=== PATIENT | female | born 1945 | race Caucasian/White ===

== ENCOUNTER → 2023-06-24 08:58 | Outpatient (REF) | payer MEDICARE, BC, SELFPAY ==
[2023-06-24 09:33] LABS: % Basophils 0.5 % (0-2); % Immature Granulocytes 0.2 % (0-0.5); % Lymphocytes 30.4 % (20.5-51.1); % Monocytes 9.2 % (1.7-9.3); % Neutrophils 57.7 % (42.2-75.2); Absolute Eosinophils 0.1 10^3/uL (0-0.7); Absolute Lymphocytes 1.9 10^3/uL (1.2-3.4); Absolute Monocytes 0.6 10^3/uL (0.1-0.6); Absolute Neutrophils 3.5 10^3/uL (1.4-6.5); Hematocrit 34.2 % (37.0-47.0); Hemoglobin 10.9 g/dL (12.0-16.0); Mean Corp Hgb Conc. 31.9 g/dL (33.0-37.0); Mean Corpuscular Hgb 27.2 pg (27.0-31.0); Mean Corpuscular Volume 85.3 fL (81.0-99.0); Mean Platelet Volume 10.4 fL (7.4-10.4); Nucleated Red Blood Cells % 0 %; Platelet Count 261 10^3/uL (130-400); Red Blood Cell Count 4.01 10^6/uL (4.20-5.40); Red Cell Dist. Width 15.7 % (11.5-14.5); White Blood Cell Count 6.1 10^3/uL (4.8-10.8)
[2023-06-24 10:02] LABS: ALT (SGPT) 31 U/L (0-35); AST (SGOT) 41 U/L (14-36); Albumin 4.3 g/dl (3.5-5.0); Alkaline Phosphatase 351 U/L (38-126); Blood Urea Nitrogen 11 mg/dl (7-17); Carbon Dioxide 23 mmol/L (22-30); Chloride 103 mmol/L (98-107); Glucose 94 mg/dl (70-99); HDL Cholesterol 87 mg/dl; Iron 74 ug/dl (37-170); LDL Cholesterol, Calculated 88 mg/dl; Potassium 4.1 mmol/L (3.5-5.1); Sodium 137 mmol/L (135-145); Total Bilirubin 0.7 mg/dl (0.2-1.3); Total Cholesterol 194 mg/dl (50-199); Total Protein 8.4 g/dl (6.3-8.2); Triglyceride 98 mg/dl (10-149); Very Low Density Lipoprotein 19 mg/dl (0-30); eGFR > 60.00
[2023-06-24 10:11] LABS: Percent Saturation 18 % (20-50); Total Iron Binding Capacity 402 ug/dl (265-497)
[2023-06-24 10:28] LABS: TSH Reflex To Free T4 4.43 uIU/ml (0.47-4.68)
== END ==
LOC: REG 08:58
PROVIDERS: ATTENDING PHYSICIAN Internal Medicine Hematology & Oncology; FAMILY PHYSICIAN Family Medicine
DX: D50.9 Iron deficiency anemia, unspecified (principal); K75.4 Autoimmune hepatitis; K74.3 Primary biliary cirrhosis; Z13.1 Encounter for screening for diabetes mellitus; E78.00 Pure hypercholesterolemia, unspecified; E03.9 Hypothyroidism, unspecified
CPT/HCPCS: 36415; 80053; 80061; 82728; 83540; 83550; 84443; 85025

== ENCOUNTER → 2023-11-01 13:16 | Outpatient (REF) | payer MEDICARE, BC, SELFPAY ==
[2023-11-01 15:01] LABS: % Basophils 0.6 % (0-2); % Eosinophils 1.1 % (0-6); % Immature Granulocytes 0.2 % (0-0.5); % Lymphocytes 34.5 % (20.5-51.1); % Monocytes 8.5 % (1.7-9.3); % Neutrophils 55.1 % (42.2-75.2); Absolute Eosinophils 0.1 10^3/uL (0-0.7); Absolute Lymphocytes 1.8 10^3/uL (1.2-3.4); Absolute Monocytes 0.5 10^3/uL (0.1-0.6); Absolute Neutrophils 2.9 10^3/uL (1.4-6.5); Hematocrit 28.8 % (37.0-47.0); Hemoglobin 9.2 g/dL (12.0-16.0); Mean Corp Hgb Conc. 31.9 g/dL (33.0-37.0); Mean Corpuscular Hgb 25.3 pg (27.0-31.0); Mean Corpuscular Volume 79.3 fL (81.0-99.0); Mean Platelet Volume 11.4 fL (7.4-10.4); Nucleated Red Blood Cells % 0 %; Platelet Count 212 10^3/uL (130-400); Red Blood Cell Count 3.63 10^6/uL (4.20-5.40); Red Cell Dist. Width 16.8 % (11.5-14.5); White Blood Cell Count 5.3 10^3/uL (4.8-10.8)
[2023-11-01 15:15] LABS: INR 1.09
[2023-11-01 15:30] LABS: NT-proBNP 349 pg/ml
[2023-11-01 15:35] LABS: ALT (SGPT) 15 U/L (0-35); AST (SGOT) 30 U/L (14-36); Albumin 2.6 g/dl (3.5-5.0); Alkaline Phosphatase 212 U/L (38-126); Blood Urea Nitrogen 10 mg/dl (7-17); Calcium 9.4 mg/dl (8.4-10.2); Carbon Dioxide 23 mmol/L (22-30); Chloride 104 mmol/L (98-107); GGTP 174 U/L (12-43); Glucose 84 mg/dl (70-99); Potassium 4.2 mmol/L (3.5-5.1); Sodium 133 mmol/L (135-145); Total Bilirubin 0.5 mg/dl (0.2-1.3); Total Protein 7.5 g/dl (6.3-8.2); eGFR > 60.00
[2023-11-01 15:47] LABS: Vitamin D, 25-OH*** 48.8 ng/mL (30-80)
[2023-11-03 11:04] LABS: Iron 27 ug/dl (37-170)
[2023-11-03 11:13] LABS: Percent Saturation 6 % (20-50); Total Iron Binding Capacity 426 ug/dl (265-497)
== END ==
LOC: REG 13:16
PROVIDERS: Internal Medicine; ATTENDING PHYSICIAN Internal Medicine Rheumatology; FAMILY PHYSICIAN Family Medicine; REFERRING PHYSICIAN Internal Medicine Transplant Hepatology
DX: D64.9 Anemia, unspecified (principal); I27.20 Pulmonary hypertension, unspecified; K22.719 Barrett's esophagus with dysplasia, unspecified; M34.1 CR(E)ST syndrome; M81.0 Age-related osteoporosis without current pathological fracture; Z51.81 Encounter for therapeutic drug level monitoring; K74.3 Primary biliary cirrhosis; M35.9 Systemic involvement of connective tissue, unspecified; I27.21 Secondary pulmonary arterial hypertension
CPT/HCPCS: 36415; 80053; 82306; 82728; 82977; 83540; 83550; 83880; 84446; 84590; 85025; 85610

== ENCOUNTER → 2023-11-08 16:07 | Outpatient (REF) | payer MEDICARE, BC, SELFPAY ==
[2023-11-08 14:50] LABS: % Basophils 0.5 % (0-2); % Eosinophils 1.5 % (0-6); % Immature Granulocytes 0.3 % (0-0.5); % Lymphocytes 27.9 % (20.5-51.1); % Monocytes 7.6 % (1.7-9.3); % Neutrophils 62.2 % (42.2-75.2); Absolute Eosinophils 0.1 10^3/uL (0-0.7); Absolute Lymphocytes 1.7 10^3/uL (1.2-3.4); Absolute Monocytes 0.5 10^3/uL (0.1-0.6); Absolute Neutrophils 3.8 10^3/uL (1.4-6.5); Hematocrit 30.7 % (37.0-47.0); Hemoglobin 9.7 g/dL (12.0-16.0); Mean Corp Hgb Conc. 31.6 g/dL (33.0-37.0); Mean Corpuscular Hgb 25.4 pg (27.0-31.0); Mean Corpuscular Volume 80.4 fL (81.0-99.0); Mean Platelet Volume 11.1 fL (7.4-10.4); Nucleated Red Blood Cells % 0 %; Platelet Count 239 10^3/uL (130-400); Red Blood Cell Count 3.82 10^6/uL (4.20-5.40); Red Cell Dist. Width 16.9 % (11.5-14.5); White Blood Cell Count 6.2 10^3/uL (4.8-10.8)
[2023-11-08 15:03] LABS: Phosphorus 4.2 mg/dl (2.5-4.5)
[2023-11-08 17:22] LABS: Vitamin D, 25-OH*** 48.3 ng/mL (30-80)
== END ==
LOC: OIDL 16:07
PROVIDERS: ATTENDING PHYSICIAN Nurse Practitioner Family
DX: D50.9 Iron deficiency anemia, unspecified (principal); E55.9 Vitamin D deficiency, unspecified
CPT/HCPCS: 82306; 84100; 85025

== ENCOUNTER → 2023-12-06 08:38 | Outpatient (REF) | payer MEDICARE, BC, SELFPAY ==
[2023-12-06 10:08] LABS: % Basophils 0.4 % (0-2); % Eosinophils 2.2 % (0-6); % Immature Granulocytes 0.4 % (0-0.5); % Lymphocytes 37.9 % (20.5-51.1); % Monocytes 8.7 % (1.7-9.3); % Neutrophils 50.4 % (42.2-75.2); Absolute Eosinophils 0.1 10^3/uL (0-0.7); Absolute Lymphocytes 1.7 10^3/uL (1.2-3.4); Absolute Monocytes 0.4 10^3/uL (0.1-0.6); Absolute Neutrophils 2.2 10^3/uL (1.4-6.5); Hematocrit 35.8 % (37.0-47.0); Hemoglobin 11.2 g/dL (12.0-16.0); Mean Corp Hgb Conc. 31.3 g/dL (33.0-37.0); Mean Corpuscular Hgb 27.2 pg (27.0-31.0); Mean Corpuscular Volume 86.9 fL (81.0-99.0); Nucleated Red Blood Cells % 0 %; Platelet Count 184 10^3/uL (130-400); Red Blood Cell Count 4.12 10^6/uL (4.20-5.40); Red Cell Dist. Width 23.3 % (11.5-14.5); White Blood Cell Count 4.5 10^3/uL (4.8-10.8)
[2023-12-06 10:09] LABS: ALT (SGPT) 19 U/L (0-35); AST (SGOT) 38 U/L (14-36); Albumin 3.8 g/dl (3.5-5.0); Alkaline Phosphatase 233 U/L (38-126); Blood Urea Nitrogen 6 mg/dl (7-17); Calcium 8.8 mg/dl (8.4-10.2); Carbon Dioxide 23 mmol/L (22-30); Chloride 109 mmol/L (98-107); Glucose 88 mg/dl (70-99); HDL Cholesterol 90 mg/dl; LDL Cholesterol, Calculated 78 mg/dl; Potassium 4.7 mmol/L (3.5-5.1); Sodium 141 mmol/L (135-145); Total Bilirubin 0.6 mg/dl (0.2-1.3); Total Cholesterol 186 mg/dl (50-199); Total Protein 7.1 g/dl (6.3-8.2); Triglyceride 90 mg/dl (10-149); Very Low Density Lipoprotein 18 mg/dl (0-30); eGFR > 60.00
[2023-12-06 11:03] LABS: TSH Reflex To Free T4 4.29 uIU/ml (0.47-4.68)
[2023-12-06 12:17] LABS: Normal RBC Morphology No
[2023-12-06 12:18] LABS: Anisocytosis 1+; Microcytosis 1+
== END ==
LOC: REG 08:38
PROVIDERS: ATTENDING PHYSICIAN Family Medicine
DX: K75.4 Autoimmune hepatitis (principal); K74.3 Primary biliary cirrhosis; D50.9 Iron deficiency anemia, unspecified; R74.8 Abnormal levels of other serum enzymes; Z13.1 Encounter for screening for diabetes mellitus; E78.00 Pure hypercholesterolemia, unspecified; E03.9 Hypothyroidism, unspecified
CPT/HCPCS: 36415; 80053; 80061; 82728; 84443; 85025

== ENCOUNTER → 2023-12-28 12:46 | Outpatient (REF) | payer MEDICARE, BC, SELFPAY ==
[2023-12-28 13:37] LABS: % Basophils 0.2 % (0-2); % Eosinophils 1.7 % (0-6); % Immature Granulocytes 0.2 % (0-0.5); % Lymphocytes 36.3 % (20.5-51.1); % Monocytes 7.2 % (1.7-9.3); % Neutrophils 54.4 % (42.2-75.2); Absolute Eosinophils 0.1 10^3/uL (0-0.7); Absolute Lymphocytes 1.5 10^3/uL (1.2-3.4); Absolute Monocytes 0.3 10^3/uL (0.1-0.6); Absolute Neutrophils 2.3 10^3/uL (1.4-6.5); Hematocrit 37.3 % (37.0-47.0); Hemoglobin 11.9 g/dL (12.0-16.0); Mean Corp Hgb Conc. 31.9 g/dL (33.0-37.0); Mean Corpuscular Hgb 27.9 pg (27.0-31.0); Mean Corpuscular Volume 87.6 fL (81.0-99.0); Mean Platelet Volume 11.1 fL (7.4-10.4); Nucleated Red Blood Cells % 0 %; Platelet Count 171 10^3/uL (130-400); Red Blood Cell Count 4.26 10^6/uL (4.20-5.40); White Blood Cell Count 4.2 10^3/uL (4.8-10.8)
[2023-12-28 14:07] LABS: Iron 70 ug/dl (37-170)
[2023-12-28 14:17] LABS: Percent Saturation 22 % (20-50); Total Iron Binding Capacity 315 ug/dl (265-497)
[2023-12-28 14:45] LABS: Ferritin 55.8 ng/ml (11.1-264.0)
== END ==
LOC: REG 12:46
PROVIDERS: ATTENDING PHYSICIAN Nurse Practitioner Family; FAMILY PHYSICIAN Family Medicine
DX: D50.9 Iron deficiency anemia, unspecified (principal)
CPT/HCPCS: 36415; 82728; 83540; 83550; 85025

== ENCOUNTER → 2024-03-17 13:12 | Outpatient (REF) | payer MEDICARE, BC, SELFPAY ==
[2024-03-17 13:45] LABS: % Basophils 0.4 % (0-2); % Eosinophils 1.6 % (0-6); % Immature Granulocytes 0.2 % (0-0.5); % Lymphocytes 35.4 % (20.5-51.1); % Monocytes 7.5 % (1.7-9.3); % Neutrophils 54.9 % (42.2-75.2); Absolute Eosinophils 0.1 10^3/uL (0-0.7); Absolute Lymphocytes 1.8 10^3/uL (1.2-3.4); Absolute Monocytes 0.4 10^3/uL (0.1-0.6); Absolute Neutrophils 2.7 10^3/uL (1.4-6.5); Hematocrit 32.9 % (37.0-47.0); Hemoglobin 10.6 g/dL (12.0-16.0); Mean Corp Hgb Conc. 32.2 g/dL (33.0-37.0); Mean Corpuscular Hgb 27.7 pg (27.0-31.0); Mean Corpuscular Volume 85.9 fL (81.0-99.0); Mean Platelet Volume 11.5 fL (7.4-10.4); Nucleated Red Blood Cells % 0 %; Platelet Count 190 10^3/uL (130-400); Red Blood Cell Count 3.83 10^6/uL (4.20-5.40); Red Cell Dist. Width 15.7 % (11.5-14.5); White Blood Cell Count 4.9 10^3/uL (4.8-10.8)
[2024-03-17 14:41] LABS: Iron 84 ug/dl (37-170)
[2024-03-17 14:50] LABS: Percent Saturation 22 % (20-50); Total Iron Binding Capacity 378 ug/dl (265-497)
== END ==
LOC: REG 13:12
PROVIDERS: ATTENDING PHYSICIAN Internal Medicine Hematology & Oncology; FAMILY PHYSICIAN Family Medicine
DX: D50.9 Iron deficiency anemia, unspecified (principal)
CPT/HCPCS: 36415; 82728; 83540; 83550; 85025

== ENCOUNTER → 2024-04-06 14:15 | Outpatient (REF) | payer MEDICARE, BC, SELFPAY ==
[2024-04-06 14:24] LABS: % Basophils 0.7 % (0-2); % Eosinophils 1.2 % (0-6); % Immature Granulocytes 0.2 % (0-0.5); % Lymphocytes 36.2 % (20.5-51.1); % Monocytes 8.5 % (1.7-9.3); % Neutrophils 53.2 % (42.2-75.2); Absolute Eosinophils 0.1 10^3/uL (0-0.7); Absolute Lymphocytes 1.5 10^3/uL (1.2-3.4); Absolute Monocytes 0.4 10^3/uL (0.1-0.6); Absolute Neutrophils 2.2 10^3/uL (1.4-6.5); Hematocrit 35.2 % (37.0-47.0); Mean Corp Hgb Conc. 31.3 g/dL (33.0-37.0); Mean Corpuscular Hgb 28.1 pg (27.0-31.0); Mean Corpuscular Volume 89.8 fL (81.0-99.0); Mean Platelet Volume 10.6 fL (7.4-10.4); Platelet Count 186 10^3/uL (130-400); Red Blood Cell Count 3.92 10^6/uL (4.20-5.40); Red Cell Dist. Width 16.5 % (11.5-14.5); White Blood Cell Count 4.1 10^3/uL (4.8-10.8)
[2024-04-06 15:10] LABS: Phosphorus 1.6 mg/dl (2.5-4.5)
== END ==
LOC: OIDL 14:15
PROVIDERS: ATTENDING PHYSICIAN Nurse Practitioner Primary Care
DX: D50.9 Iron deficiency anemia, unspecified (principal)
CPT/HCPCS: 84100; 85025

== ENCOUNTER → 2024-04-11 16:49 | Outpatient (REF) | payer MEDICARE, BC, SELFPAY | LOC: RCS 16:49 | PROVIDERS: ATTENDING PHYSICIAN Internal Medicine; FAMILY PHYSICIAN Family Medicine | DX: I27.21 Secondary pulmonary arterial hypertension (principal); M35.9 Systemic involvement of connective tissue, unspecified | CPT/HCPCS: 93306 ==

== ENCOUNTER → 2024-04-26 11:40 | Outpatient (REF) | payer MEDICARE, BC, SELFPAY ==
[2024-04-26 12:36] LABS: % Basophils 0.4 % (0-2); % Eosinophils 1.1 % (0-6); % Lymphocytes 33.1 % (20.5-51.1); % Monocytes 6.9 % (1.7-9.3); % Neutrophils 58.5 % (42.2-75.2); Absolute Eosinophils 0.1 10^3/uL (0-0.7); Absolute Lymphocytes 1.5 10^3/uL (1.2-3.4); Absolute Monocytes 0.3 10^3/uL (0.1-0.6); Absolute Neutrophils 2.6 10^3/uL (1.4-6.5); Hematocrit 35.1 % (37.0-47.0); Hemoglobin 11.4 g/dL (12.0-16.0); Mean Corp Hgb Conc. 32.5 g/dL (33.0-37.0); Mean Corpuscular Hgb 29.6 pg (27.0-31.0); Mean Corpuscular Volume 91.2 fL (81.0-99.0); Mean Platelet Volume 11.3 fL (7.4-10.4); Nucleated Red Blood Cells % 0 %; Platelet Count 158 10^3/uL (130-400); Red Blood Cell Count 3.85 10^6/uL (4.20-5.40); White Blood Cell Count 4.5 10^3/uL (4.8-10.8)
[2024-04-26 13:22] LABS: NT-proBNP 331 pg/ml
[2024-04-26 13:28] LABS: ALT (SGPT) 27 U/L (0-35); AST (SGOT) 53 U/L (14-36); Albumin 3.9 g/dl (3.5-5.0); Alkaline Phosphatase 227 U/L (38-126); Blood Urea Nitrogen 9 mg/dl (7-17); Calcium 8.9 mg/dl (8.4-10.2); Carbon Dioxide 22 mmol/L (22-30); Chloride 101 mmol/L (98-107); Glucose 77 mg/dl (70-99); Potassium 4.2 mmol/L (3.5-5.1); Sodium 132 mmol/L (135-145); Total Bilirubin 0.9 mg/dl (0.2-1.3); Total Protein 7.3 g/dl (6.3-8.2); eGFR > 60.00
== END ==
LOC: REG 11:40
PROVIDERS: ATTENDING PHYSICIAN Internal Medicine; FAMILY PHYSICIAN Internal Medicine Rheumatology; REFERRING PHYSICIAN Family Medicine
DX: D64.9 Anemia, unspecified (principal); I27.20 Pulmonary hypertension, unspecified; K22.719 Barrett's esophagus with dysplasia, unspecified; M34.1 CR(E)ST syndrome; M54.6 Pain in thoracic spine; M81.0 Age-related osteoporosis without current pathological fracture; Z51.81 Encounter for therapeutic drug level monitoring; I27.21 Secondary pulmonary arterial hypertension; M35.9 Systemic involvement of connective tissue, unspecified
CPT/HCPCS: 36415; 80053; 83880; 85025

== ENCOUNTER → 2024-06-23 14:31 | Outpatient (REF) | payer MEDICARE, BC, SELFPAY ==
[2024-06-23 15:18] LABS: % Basophils 0.6 % (0-2); % Eosinophils 1.8 % (0-6); % Immature Granulocytes 0.2 % (0-0.5); % Lymphocytes 41.2 % (20.5-51.1); % Neutrophils 48.2 % (42.2-75.2); Absolute Eosinophils 0.1 10^3/uL (0-0.7); Absolute Lymphocytes 2.1 10^3/uL (1.2-3.4); Absolute Monocytes 0.4 10^3/uL (0.1-0.6); Absolute Neutrophils 2.4 10^3/uL (1.4-6.5); Hematocrit 34.5 % (37.0-47.0); Hemoglobin 10.8 g/dL (12.0-16.0); Mean Corp Hgb Conc. 31.3 g/dL (33.0-37.0); Mean Corpuscular Hgb 30.6 pg (27.0-31.0); Mean Corpuscular Volume 97.7 fL (81.0-99.0); Mean Platelet Volume 11.3 fL (7.4-10.4); Nucleated Red Blood Cells % 0 %; Platelet Count 162 10^3/uL (130-400); Red Blood Cell Count 3.53 10^6/uL (4.20-5.40); Red Cell Dist. Width 14.9 % (11.5-14.5)
[2024-06-23 15:42] LABS: Iron 86 ug/dl (37-170)
[2024-06-23 15:52] LABS: Percent Saturation 29 % (20-50); Total Iron Binding Capacity 290 ug/dl (265-497)
[2024-06-23 16:15] LABS: Ferritin 87.1 ng/ml (11.1-264.0)
== END ==
LOC: REG 14:31
PROVIDERS: ATTENDING PHYSICIAN Internal Medicine Hematology & Oncology; FAMILY PHYSICIAN Family Medicine
DX: D50.9 Iron deficiency anemia, unspecified (principal)
CPT/HCPCS: 36415; 82728; 83540; 83550; 85025

== ENCOUNTER → 2024-07-05 15:26 | Outpatient (REF) | payer MEDICARE, BC, SELFPAY ==
[2024-07-05 15:22] LABS: % Basophils 0.2 % (0-2); % Eosinophils 2.2 % (0-6); % Immature Granulocytes 0.2 % (0-0.5); % Lymphocytes 34.1 % (20.5-51.1); % Monocytes 8.5 % (1.7-9.3); % Neutrophils 54.8 % (42.2-75.2); Absolute Eosinophils 0.1 10^3/uL (0-0.7); Absolute Lymphocytes 1.4 10^3/uL (1.2-3.4); Absolute Monocytes 0.4 10^3/uL (0.1-0.6); Absolute Neutrophils 2.3 10^3/uL (1.4-6.5); Hematocrit 32.7 % (37.0-47.0); Hemoglobin 10.3 g/dL (12.0-16.0); Mean Corp Hgb Conc. 31.5 g/dL (33.0-37.0); Mean Corpuscular Hgb 29.6 pg (27.0-31.0); Platelet Count 166 10^3/uL (130-400); Red Blood Cell Count 3.48 10^6/uL (4.20-5.40); Red Cell Dist. Width 14.3 % (11.5-14.5); White Blood Cell Count 4.1 10^3/uL (4.8-10.8)
[2024-07-05 16:11] LABS: Phosphorus 3.5 mg/dl (2.5-4.5)
== END ==
LOC: OIDL 15:26
PROVIDERS: ATTENDING PHYSICIAN Nurse Practitioner Primary Care
DX: D50.9 Iron deficiency anemia, unspecified (principal)
CPT/HCPCS: 84100; 85025

== ENCOUNTER → 2024-07-14 06:38 | Outpatient (REF) | payer MEDICARE, BC, SELFPAY ==
[2024-07-14 07:31] LABS: % Eosinophils 3.7 % (0-6); % Immature Granulocytes 0.2 % (0-0.5); % Lymphocytes 38.7 % (20.5-51.1); % Monocytes 6.9 % (1.7-9.3); % Neutrophils 49.5 % (42.2-75.2); Absolute Eosinophils 0.2 10^3/uL (0-0.7); Absolute Lymphocytes 1.6 10^3/uL (1.2-3.4); Absolute Monocytes 0.3 10^3/uL (0.1-0.6); Hematocrit 37.6 % (37.0-47.0); Mean Corp Hgb Conc. 31.9 g/dL (33.0-37.0); Mean Corpuscular Hgb 29.7 pg (27.0-31.0); Mean Corpuscular Volume 93.1 fL (81.0-99.0); Mean Platelet Volume 11.2 fL (7.4-10.4); Nucleated Red Blood Cells % 0 %; Platelet Count 161 10^3/uL (130-400); Red Blood Cell Count 4.04 10^6/uL (4.20-5.40); Red Cell Dist. Width 15.4 % (11.5-14.5); White Blood Cell Count 4.1 10^3/uL (4.8-10.8)
[2024-07-14 08:23] LABS: ALT (SGPT) 19 U/L (0-35); AST (SGOT) 39 U/L (14-36); Albumin 3.7 g/dl (3.5-5.0); Alkaline Phosphatase 211 U/L (38-126); Blood Urea Nitrogen 9 mg/dl (7-17); Calcium 9.2 mg/dl (8.4-10.2); Carbon Dioxide 24 mmol/L (22-30); Chloride 109 mmol/L (98-107); Glucose 90 mg/dl (70-99); HDL Cholesterol 91 mg/dl; LDL Cholesterol, Calculated 69 mg/dl; Sodium 141 mmol/L (135-145); Total Bilirubin 0.7 mg/dl (0.2-1.3); Total Cholesterol 177 mg/dl (50-199); Total Protein 7.4 g/dl (6.3-8.2); Triglyceride 85 mg/dl (10-149); Very Low Density Lipoprotein 17 mg/dl (0-30); eGFR > 60.00
[2024-07-14 08:27] LABS: TSH Reflex To Free T4 6.05 uIU/ml (0.47-4.68)
[2024-07-14] MEDS: LEXISCAN 0.4 MG IV (08:47)
[2024-07-14] MEDS: FLUSH (NSS) 1 FLUSH IV (08:48)
[2024-07-14] MEDS: AMINOPHYLLINE 75 MG IV (08:48)
[2024-07-14 08:53] LABS: Free T4 1.24 ng/dl (0.78-2.19)
== END ==
LOC: RCS 06:38
PROVIDERS: ATTENDING PHYSICIAN Internal Medicine Advanced Heart Failure and Transplant Cardiology; FAMILY PHYSICIAN Family Medicine
DX: R06.09 Other forms of dyspnea (principal); I10 Essential (primary) hypertension; I50.30 Unspecified diastolic (congestive) heart failure; M34.9 Systemic sclerosis, unspecified
CPT/HCPCS: 36415; 78452; 80053; 80061; 82728; 84439; 84443; 85025; 93017; A9500; J2785

== ENCOUNTER → 2024-08-07 13:17 | Outpatient (REF) | payer MEDICARE, BC, SELFPAY ==
[2024-08-07 15:11] LABS: Total Iron Binding Capacity 251 ug/dl (265-497)
[2024-08-07 15:29] LABS: % Basophils 0.5 % (0-2); % Immature Granulocytes 0.3 % (0-0.5); % Lymphocytes 37.3 % (20.5-51.1); % Monocytes 8.3 % (1.7-9.3); % Neutrophils 51.6 % (42.2-75.2); Absolute Eosinophils 0.1 10^3/uL (0-0.7); Absolute Lymphocytes 1.5 10^3/uL (1.2-3.4); Absolute Monocytes 0.3 10^3/uL (0.1-0.6); Absolute Neutrophils 2.1 10^3/uL (1.4-6.5); Hematocrit 36.8 % (37.0-47.0); Hemoglobin 11.9 g/dL (12.0-16.0); Mean Corp Hgb Conc. 32.3 g/dL (33.0-37.0); Mean Corpuscular Hgb 29.5 pg (27.0-31.0); Mean Corpuscular Volume 91.3 fL (81.0-99.0); Mean Platelet Volume 11.3 fL (7.4-10.4); Nucleated Red Blood Cells % 0 %; Platelet Count 202 10^3/uL (130-400); Red Blood Cell Count 4.03 10^6/uL (4.20-5.40); Red Cell Dist. Width 16.4 % (11.5-14.5)
[2024-08-07 15:31] LABS: Iron 78 ug/dl (37-170); Percent Saturation 31 % (20-50)
== END ==
LOC: REG 13:17
PROVIDERS: ATTENDING PHYSICIAN Nurse Practitioner Adult Health; FAMILY PHYSICIAN Family Medicine; OTHER PHYSICIAN Internal Medicine
DX: J44.89 Other specified chronic obstructive pulmonary disease (principal); D50.9 Iron deficiency anemia, unspecified
CPT/HCPCS: 36415; 71046; 82728; 83540; 83550; 85025

== ENCOUNTER → 2024-09-15 15:39 | Outpatient (REF) | payer MEDICARE, BC, SELFPAY ==
[2024-09-15 16:43] LABS: % Basophils 0.5 % (0-2); % Eosinophils 3.3 % (0-6); % Immature Granulocytes 0.2 % (0-0.5); % Lymphocytes 34.9 % (20.5-51.1); % Monocytes 9.7 % (1.7-9.3); % Neutrophils 51.4 % (42.2-75.2); Absolute Eosinophils 0.1 10^3/uL (0-0.7); Absolute Lymphocytes 1.5 10^3/uL (1.2-3.4); Absolute Monocytes 0.4 10^3/uL (0.1-0.6); Absolute Neutrophils 2.2 10^3/uL (1.4-6.5); Hemoglobin 11.8 g/dL (12.0-16.0); Mean Corp Hgb Conc. 32.8 g/dL (33.0-37.0); Mean Corpuscular Hgb 29.7 pg (27.0-31.0); Mean Corpuscular Volume 90.7 fL (81.0-99.0); Mean Platelet Volume 12.1 fL (7.4-10.4); Nucleated Red Blood Cells % 0 %; Platelet Count 129 10^3/uL (130-400); Red Blood Cell Count 3.97 10^6/uL (4.20-5.40); Red Cell Dist. Width 16.3 % (11.5-14.5); White Blood Cell Count 4.2 10^3/uL (4.8-10.8)
[2024-09-15 16:51] LABS: Iron 64 ug/dl (37-170)
[2024-09-15 17:00] LABS: Percent Saturation 23 % (20-50); Total Iron Binding Capacity 268 ug/dl (265-497)
== END ==
LOC: REG 15:39
PROVIDERS: ATTENDING PHYSICIAN Nurse Practitioner Adult Health; FAMILY PHYSICIAN Family Medicine
DX: D50.9 Iron deficiency anemia, unspecified (principal)
CPT/HCPCS: 36415; 82728; 83540; 83550; 85025

== ENCOUNTER 2024-10-19 13:15 | Outpatient (RCR) | payer MEDICARE, BC, SELFPAY | END 2024-10-19 23:59 | disposition home or self-care (01) | LOC: PURB 13:15 | PROVIDERS: ATTENDING PHYSICIAN Internal Medicine; FAMILY PHYSICIAN Family Medicine | DX: I27.21 Secondary pulmonary arterial hypertension (principal) | CPT/HCPCS: G0237; G0239 ==

== ENCOUNTER → 2024-10-19 14:24 | Outpatient (REF) | payer MEDICARE, BC, SELFPAY ==
[2024-10-19 15:17] LABS: Hematocrit 33.9 % (37.0-47.0); Hemoglobin 10.8 g/dL (12.0-16.0); Mean Corp Hgb Conc. 31.9 g/dL (33.0-37.0); Mean Corpuscular Volume 90.6 fL (81.0-99.0); Nucleated Red Blood Cells % 0 %; Platelet Count 126 10^3/uL (130-400); Red Cell Dist. Width 15.8 % (11.5-14.5)
[2024-10-19 15:38] LABS: Iron 70 ug/dl (37-170)
[2024-10-19 15:41] LABS: Total Iron Binding Capacity 284 ug/dl (265-497)
[2024-10-19 15:51] LABS: Vitamin D, 25-OH*** 44.0 ng/mL (30-80)
[2024-10-19 16:09] LABS: Ferritin 80.9 ng/ml (11.1-264.0)
[2024-10-19 16:24] LABS: Vitamin B12 948 pg/ml (239-931)
== END ==
LOC: REG 14:24
PROVIDERS: ATTENDING PHYSICIAN Nurse Practitioner Adult Health; FAMILY PHYSICIAN Family Medicine
DX: E03.9 Hypothyroidism, unspecified (principal); E55.9 Vitamin D deficiency, unspecified; E53.8 Deficiency of other specified B group vitamins; D50.9 Iron deficiency anemia, unspecified
CPT/HCPCS: 36415; 82306; 82607; 82728; 83540; 83550; 84443; 85025

== ENCOUNTER 2024-11-07 13:15 | Outpatient (RCR) | payer MEDICARE, BC, SELFPAY | END 2024-11-17 11:04 | disposition home or self-care (01) | LOC: PURB 13:15 | PROVIDERS: ATTENDING PHYSICIAN Internal Medicine; FAMILY PHYSICIAN Family Medicine | DX: I27.21 Secondary pulmonary arterial hypertension (principal) | CPT/HCPCS: G0239 ==

== ENCOUNTER → 2024-11-18 11:11 | Outpatient (REF) | payer MEDICARE, BC, SELFPAY ==
[2024-11-18 12:22] LABS: Hematocrit 30.7 % (37.0-47.0); Hemoglobin 10.1 g/dL (12.0-16.0); Mean Corp Hgb Conc. 32.9 g/dL (33.0-37.0); Mean Corpuscular Volume 91.1 fL (81.0-99.0); Nucleated Red Blood Cells % 0 %; Platelet Count 158 10^3/uL (130-400); Red Cell Dist. Width 15.9 % (11.5-14.5)
[2024-11-18 13:52] LABS: Iron 53 ug/dl (37-170)
[2024-11-18 14:02] LABS: Total Iron Binding Capacity 311 ug/dl (265-497)
[2024-11-18 14:25] LABS: Ferritin 57.1 ng/ml (11.1-264.0)
== END ==
LOC: REG 11:11
PROVIDERS: ATTENDING PHYSICIAN Nurse Practitioner Adult Health; FAMILY PHYSICIAN Family Medicine
DX: D50.9 Iron deficiency anemia, unspecified (principal)
CPT/HCPCS: 36415; 82728; 83540; 83550; 85025

== ENCOUNTER → 2024-12-04 10:18 | Outpatient (REF) | payer MEDICARE, BC, SELFPAY ==
[2024-12-04 10:34] LABS: Hematocrit 32.0 % (37.0-47.0); Hemoglobin 10.2 g/dL (12.0-16.0); Mean Corp Hgb Conc. 31.9 g/dL (33.0-37.0); Mean Corpuscular Volume 93.6 fL (81.0-99.0); Platelet Count 166 10^3/uL (130-400); Red Cell Dist. Width 16.7 % (11.5-14.5)
== END ==
LOC: OIDL 10:18
PROVIDERS: ATTENDING PHYSICIAN Nurse Practitioner Primary Care
DX: D50.9 Iron deficiency anemia, unspecified (principal)
CPT/HCPCS: 85025

== ENCOUNTER → 2024-12-07 15:18 | Outpatient (REF) | payer MEDICARE, BC, SELFPAY | LOC: WDC 15:18 | PROVIDERS: ATTENDING PHYSICIAN Family Medicine | DX: Z12.31 Encounter for screening mammogram for malignant neoplasm of breast (principal) | CPT/HCPCS: 77063; 77067 ==

== ENCOUNTER 2024-12-14 13:15 | Outpatient (RCR) | payer MEDICARE, BC, SELFPAY | END 2024-12-14 23:59 | disposition home or self-care (01) | LOC: PURB 13:15 | PROVIDERS: ATTENDING PHYSICIAN Internal Medicine; FAMILY PHYSICIAN Family Medicine | DX: I27.21 Secondary pulmonary arterial hypertension (principal); J43.9 Emphysema, unspecified | CPT/HCPCS: G0239 ==

== ENCOUNTER → 2025-01-08 11:20 | Outpatient (REF) | payer MEDICARE, BC, SELFPAY ==
[2025-01-08 12:10] LABS: Hematocrit 36.7 % (37.0-47.0); Hemoglobin 11.7 g/dL (12.0-16.0); Mean Corp Hgb Conc. 31.9 g/dL (33.0-37.0); Mean Corpuscular Volume 95.1 fL (81.0-99.0); Nucleated Red Blood Cells % 0 %; Platelet Count 167 10^3/uL (130-400); Red Cell Dist. Width 18.3 % (11.5-14.5)
[2025-01-08 12:14] LABS: INR 0.96; PT 13.1 Sec (11.4-14.6)
[2025-01-08 13:04] LABS: ALT (SGPT) 15 U/L (0-35); AST (SGOT) 30 U/L (14-36); Albumin 3.7 g/dl (3.5-5.0); Alkaline Phosphatase 266 U/L (38-126); Blood Urea Nitrogen 9 mg/dl (7-17); Calcium 8.4 mg/dl (8.4-10.2); Carbon Dioxide 22 mmol/L (22-30); Chloride 109 mmol/L (98-107); Glucose 72 mg/dl (70-99); Iron 90 ug/dl (37-170); Potassium 4.5 mmol/L (3.5-5.1); Sodium 134 mmol/L (135-145); Total Protein 7.4 g/dl (6.3-8.2); Vitamin D, 25-OH*** 55.6 ng/mL (30-80); eGFR > 60.00
[2025-01-08 13:13] LABS: GGTP 243 U/L (12-43)
[2025-01-08 13:17] LABS: Total Iron Binding Capacity 231 ug/dl (265-497)
[2025-01-08 13:22] LABS: Ferritin 480.0 ng/ml (11.1-264.0)
== END ==
LOC: REG 11:20
PROVIDERS: ATTENDING PHYSICIAN Internal Medicine Rheumatology; FAMILY PHYSICIAN Family Medicine; OTHER PHYSICIAN Internal Medicine; OTHER PHYSICIAN Nurse Practitioner Adult Health; REFERRING PHYSICIAN Internal Medicine Transplant Hepatology
DX: D64.9 Anemia, unspecified (principal); E55.9 Vitamin D deficiency, unspecified; I27.20 Pulmonary hypertension, unspecified; K22.719 Barrett's esophagus with dysplasia, unspecified; M34.1 CR(E)ST syndrome; M54.6 Pain in thoracic spine; M81.0 Age-related osteoporosis without current pathological fracture; Z51.81 Encounter for therapeutic drug level monitoring; D50.9 Iron deficiency anemia, unspecified; K74.3 Primary biliary cirrhosis; I27.21 Secondary pulmonary arterial hypertension; M35.9 Systemic involvement of connective tissue, unspecified
CPT/HCPCS: 36415; 80053; 82306; 82728; 82977; 83540; 83550; 83880; 84446; 84590; 85025; 85610

== ENCOUNTER → 2025-01-15 08:28 | Outpatient (REF) | payer MEDICARE, BC, SELFPAY ==
[2025-01-15 09:38] LABS: ALT (SGPT) 14 U/L (0-35); AST (SGOT) 30 U/L (14-36); Albumin 3.5 g/dl (3.5-5.0); Alkaline Phosphatase 276 U/L (38-126); Blood Urea Nitrogen 11 mg/dl (7-17); Calcium 7.6 mg/dl (8.4-10.2); Carbon Dioxide 24 mmol/L (22-30); Chloride 109 mmol/L (98-107); Glucose 86 mg/dl (70-99); HDL Cholesterol 104 mg/dl; LDL Cholesterol, Calculated 60 mg/dl; Potassium 3.8 mmol/L (3.5-5.1); Sodium 135 mmol/L (135-145); Total Protein 7.0 g/dl (6.3-8.2); Very Low Density Lipoprotein 16 mg/dl (0-30); eGFR > 60.00
== END ==
LOC: REG 08:28
PROVIDERS: ATTENDING PHYSICIAN Family Medicine
DX: K75.4 Autoimmune hepatitis (principal); K74.3 Primary biliary cirrhosis; D50.9 Iron deficiency anemia, unspecified; Z13.1 Encounter for screening for diabetes mellitus; E78.00 Pure hypercholesterolemia, unspecified; R74.8 Abnormal levels of other serum enzymes
CPT/HCPCS: 36415; 80053; 80061

== ENCOUNTER 2025-01-18 13:15 | Outpatient (RCR) | payer MEDICARE, BC, SELFPAY | END 2025-01-18 23:59 | disposition home or self-care (01) | LOC: PURB 13:15 | PROVIDERS: ATTENDING PHYSICIAN Internal Medicine; FAMILY PHYSICIAN Family Medicine | DX: I27.21 Secondary pulmonary arterial hypertension (principal); J43.9 Emphysema, unspecified | CPT/HCPCS: 94625; G0239 ==

== ENCOUNTER 2025-02-08 13:15 | Outpatient (RCR) | payer MEDICARE, BC, SELFPAY | END 2025-02-09 09:22 | disposition home or self-care (01) | LOC: PURB 13:15 | PROVIDERS: ATTENDING PHYSICIAN Internal Medicine; FAMILY PHYSICIAN Family Medicine | DX: I27.21 Secondary pulmonary arterial hypertension (principal); J43.9 Emphysema, unspecified | CPT/HCPCS: 94625 ==

== ENCOUNTER → 2025-02-21 14:50 | Outpatient (REF) | payer MEDICARE, BC, SELFPAY | LOC: RCS 14:50 | PROVIDERS: ATTENDING PHYSICIAN Internal Medicine; FAMILY PHYSICIAN Family Medicine | DX: R91.8 Other nonspecific abnormal finding of lung field (principal); I27.21 Secondary pulmonary arterial hypertension; M35.9 Systemic involvement of connective tissue, unspecified | CPT/HCPCS: 93306 ==